=== PATIENT | female | born 1985 | race Caucasian/White ===

== ENCOUNTER 2020-10-25 12:34 | Outpatient (REF) | payer OTHER, SELFPAY ==
[2020-10-26 13:10] LABS: Abs Immature Grans 0.02 10^3/uL (0.0-0.06); Absolute Basophil Count 0.07 10^3/uL (0.0-0.2); Absolute Eosinophil Count 0.17 10^3/uL (0.0-0.7); Absolute Lymphocyte Count 1.94 10^3/uL (1.2-3.4); Absolute Monocyte Count 0.73 10^3/uL (0.1-0.8); Absolute Neutrophil Count 5.66 10^3/uL (1.2-6.7); Basophils % 0.8; HCT 43.6 % (36.0-46.0); HGB 14.3 g/dL (11.2-15.7); Immature Grans % 0.2; Lymphocytes % 22.6; MCH 28.9 pg (27.0-33.0); MCHC 32.8 % (32.0-36.0); MCV 88.1 fL (80-95); MPV 11.6 fL (8.0-11.0); Monocytes % 8.5; Neutrophils % 65.9; Nucleated RBC 0 %; Platelet Count 285 10^3/uL (130-400); RBC 4.95 10^6/uL (3.93-5.22); RDW 13.4 % (11.7-14.6); RDW-SD 43.1 fL; WBC 8.59 10^3/uL (4.4-10.8)
[2020-10-26 13:44] LABS: ALT 24 U/L (14-59); AST 12 U/L (15-37); Alkaline Phosphatase 63 U/L (46-116); Anion Gap 10.5 mmol/L (3-11); BUN 14 mg/dL (7-18); Bilirubin, Total 0.5 mg/dL (0.2-1.0); CO2 25.5 mmol/L (21.0-32.0); CREATININE 0.8 mg/dL (0.55-1.02); Calcium 9.2 mg/dL (8.5-10.1); Chloride 104 mmol/L (98-107); Glucose 83 mg/dL (74-106); Potassium 4.5 mmol/L (3.5-5.1); Sodium 140 mmol/L (136-145); TSH (W/Ref FT4) 1.12 uIU/mL (0.36-3.74); Total Protein 7.4 g/dL (6.4-8.2)
== END 2020-10-25 12:35 | disposition home or self-care (01) ==
LOC: NCHCN 12:34
PROVIDERS: Visit Provider Acupuncturist
DX: L65.9 Nonscarring hair loss, unspecified (principal)
CPT/HCPCS: 80053; 84443; 85025